=== PATIENT | female | born 1950 | race Caucasian/White ===

== ENCOUNTER → 2018-03-30 | Outpatient (CLI) | payer OTHER ==
[~2018-03-30] MED LIST: AEROCHAMBER MI1 EACH MC; LISINOPRIL10 MG PO; LISINOPRIL2.5 MG PO; NORCO 5-325 TA1 EACH PO; PERCOCET 10-321 EACH PO; PERCOCET 5-3251 EACH PO; PHENERGAN 25 MG25 M1 PO; PREDNISONE
--- NOTE | ~2018-03-30 | 2DMMODE ---
[facility] [place] [address] 2 D/M-MODE ECHOCARDIOGRAM Name: NADEEN RAINEY Room #: REG [facility]#: [id number] Admission: 03/30/18 Attend Phys: Ebenezer Barnes MD Discharge: Date of : 46 Date of Service: 03/30/18 1613 Report #: [id number] THIS REPORT FOR: //name// APPROVED REPORT Study performed: 03/30/2018 13:10:30 EXAM: Comprehensive 2D, Doppler, and color-flow Echocardiogram Patient Location: Out-Patient Status: routine BSA: 1.72 HR: 62 bpm BP: 128/78 mmHg Rhythm: NSR Other Information Study Quality: Adequate Indications Dyspnea, ABN EKG 2D Dimensions RVDd: 27.71 mm IVSd: 10.32 (7-11mm) LVOT Diam: 18.26 (18-24mm) LVDd: 43.97 mm PWd: 8.81 (7-11mm) Ascending Ao: 29.12 (22-36mm) LVDs: 28.56 (25-40mm) Aortic Root: 29.65 mm IVC: 18.00 mm Volumes Left Atrial Volume (Systole) Single Plane 4CH: 49.65 mL Aortic Valve AoV Peak Nguyễn.: 1.82 m/s AO Peak Gr.: 13.28 mmHg LVOT Max P.73 mmHg LVOT Max V: 1.39 m/s DWAINE Vmax: 2.00 cm2 Mitral Valve E/A Ratio: 1.4 MV Decel. Time: 197.31 ms MV E Max Nguyễn.: 0.64 m/s MV A Nguyễn.: 0.47 m/s [facility] [address] [place] [address] 2 D/M-MODE ECHOCARDIOGRAM Name: NADEEN RAINEY Room #: [facility]#: [id number] Admission: 03/30/18 Attend Phys: Ebenezer Barnes MD Discharge: Date of : 46 Date of Service: 03/30/18 1613 Report #: [id number] MV PHT: 57.22 ms IVRT: 93.43 ms Pulmonary Valve PV Peak Nguyễn.: 0.94 m/s PV Peak Gr.: 3.53 mmHg IL End Vmax: 0.93 m/s Pulmonary Vein P Vein S: 0.51 m/s P Vein D: 0.43 m/s P Vein S/D Ratio: 1.19 Tricuspid Valve TR Peak Nguyễn.: 2.54 m/s RAP Estimate: 5.00 mmHg TR Peak Gr.: 25.81 mmHg PA Pressure: 31.00 mmHg Left Ventricle The left ventricle is normal size. There is normal left ventricular wall thickness. The left ventricular systolic function is normal. The left ventricular ejection fraction is within the normal range. LVEF is 55-60%. Mild diastolic dysfunction is present (impaired relaxation pattern). Right Ventricle The right ventricle is normal size. The right ventricular systolic function is normal. Atria Left atrium is mildly dilated. The right atrium size is normal. Aortic Valve The aortic valve is normal in structure. Aortic valve is trileaflet. No aortic regurgitation is present. There is no aortic valvular stenosis. Mitral Valve The mitral valve is normal in structure. Mild mitral regurgitation. No evidence of mitral valve stenosis. Tricuspid Valve The tricuspid valve is normal in structure. Estimated PAP of 31 mmHg. Mild tricuspid regurgitation. Pulmonic Valve [facility] [address] [place] [address] 2 D/M-MODE ECHOCARDIOGRAM Name: NADEEN RAINEY Room #: REG [facility]#: [id number] Admission: 03/30/18 Attend Phys: Ebenezer Barnes MD Discharge: Date of : 46 Date of Service: 03/30/18 1613 Report #: [id number] The pulmonary valve is normal in structure. Mild to moderate pulmonic regurgitation. Great Vessels The aortic root is normal in size. IVC is normal in size and collapses >50% with inspiration. <Conclusion> The left ventricle is normal size. There is normal left ventricular wall thickness. The left ventricular systolic function is normal. Mild diastolic dysfunction is present (impaired relaxation pattern). The right ventricle is normal size. Left atrium is mildly dilated. The aortic valve is normal in structure. Mild mitral regurgitation. Mild tricuspid regurgitation. <ELECTRONICALLY SIGNED> By: Ebenezer Barnes MD 03/30/181612 12 12 Ebenezer Barnes MD /INF
--- NOTE | ~2018-03-30 | EXE ---
[facility] [employer] [address] STRESS ECHOCARDIOGRAM Name: NADEEN RAINEY Room #: REG [facility]#: [id number] Admission: 03/30/18 Attend Phys: Ebenezer Barnes MD Discharge: Date of : 46 Date of Service: 03/30/18 1616 Report #: [id number] THIS REPORT FOR: //name// APPROVED REPORT Study performed: 03/30/2018 14:12:16 Exam: Stress Echocardiogram Indication: Abnormal EKG Patient Location: Out-Patient Stress Nurse: Marian Flowers RN, Juliet Robles RN Status: routine Ht: 5 ft 2 in HR: 63 bpm BP: 128/78 mmHg Rhythm: NSR Medical History Medications: Listed on worksheet Cardiac Risk Factors: HTN Procedure The patient underwent an Exercise Stress Test using the Quan Protocol. Blood pressure, heart rate, and EKG were monitored. An Echocardiogram was performed by hazardous materials waste technician in four stages in quad fashion. At peak stress, four selected images were obtained and placed side by side with resting images for comparison. Stress Test Details Stress Test: Exercise stress testing was performed using a Quan protocol. HR Resting HR: 63 bpm Max Heart Rate (APMHR): 151 bpm Max HR Achieved: 130 bpm Target HR (85% APMHR): 128 bpm % of APMHR: 86 Recovery HR: 69 bpm HR response to stress: Normal HR response to stress BP Resting BP: 128/78 mmHg Max BP: 170/82 mmHg Recovery BP: 142/80 mmHg ECG Resting ECG: Sinus Rhythm [facility] [address] [place] [address] STRESS ECHOCARDIOGRAM Name: NADEEN RAINEY Room #: REG [facility]#: [id number] Admission: 03/30/18 Attend Phys: Ebenezer Barnes MD Discharge: Date of : 46 Date of Service: 03/30/18 1616 Report #: [id number] Stress ECG: Sinus Rhythm, nonspecific ST-T abnormalities ST Change: Non-ischemic Clinical Reason for Termination: Moderate/severe fatigue Stress Symptoms: short of breath, fatigue Exercise duration: 7 min 13 sec Highest Stage Achieved: Stage 3: 3.4 mph at 14% grade. Exercise capacity: 10.10 METs Pre-Stress Echo The resting Echocardiogram showed normal left ventricular contractility with an estimated Ejection Fraction of about 55-60%. Mild MR, mild TR. Post-Stress Echo The stress Echocardiogram showed normal left ventricular contractility with an estimated Ejection Fraction of about 65-70%. Normal augmentation of wall motion in all segments on post stress images. Clinical No clinical or ECG evidence for ischemia. Conclusion Clinical Response: Non-ischemic Exercise Capacity: Average Stress ECG Response: Non-ischemic Stress Echo Images: Non-ischemic The left ventricle is normal in size and wall thickness in both the rest and stress images. Other Information Study Quality: Adequate <Conclusion> The left ventricle is normal in size and wall thickness in both the rest and stress images. <ELECTRONICALLY SIGNED> By: Ebenezer Barnes MD 03/30/181615 15 15 Ebenezer Barnes MD /INF
== END ==
LOC: CV 08:43
DX: I08.1 Rheumatic disorders of both mitral and tricuspid valves (principal); R94.31 Abnormal electrocardiogram [ECG] [EKG]

== ENCOUNTER → 2019-07-08 | Outpatient (CLI) | payer OTHER | LOC: SJCVC 14:26 | DX: R94.31 Abnormal electrocardiogram [ECG] [EKG] (principal); I10 Essential (primary) hypertension; I34.0 Nonrheumatic mitral (valve) insufficiency; I49.3 Ventricular premature depolarization; R93.1 Abnormal findings on diagnostic imaging of heart and coronary circulation; E78.00 Pure hypercholesterolemia, unspecified; Z79.899 Other long term (current) drug therapy ==

== ENCOUNTER → 2020-05-11 | Outpatient (CLI) | payer OTHER | LOC: SJCVCIMAG 09:54 | PROVIDERS: ATTEND Internal Medicine Cardiovascular Disease | DX: I08.1 Rheumatic disorders of both mitral and tricuspid valves (principal); R93.1 Abnormal findings on diagnostic imaging of heart and coronary circulation; E78.5 Hyperlipidemia, unspecified; J45.909 Unspecified asthma, uncomplicated; I10 Essential (primary) hypertension; Z82.49 Family history of ischemic heart disease and other diseases of the circulatory system ==

== ENCOUNTER → 2020-11-13 | Outpatient (CLI) | payer OTHER | LOC: SJCVC 10:53 | PROVIDERS: ATTEND Internal Medicine Cardiovascular Disease | DX: R94.31 Abnormal electrocardiogram [ECG] [EKG] (principal); I25.10 Atherosclerotic heart disease of native coronary artery without angina pectoris; I10 Essential (primary) hypertension; I34.0 Nonrheumatic mitral (valve) insufficiency; R93.1 Abnormal findings on diagnostic imaging of heart and coronary circulation; E78.00 Pure hypercholesterolemia, unspecified; J45.909 Unspecified asthma, uncomplicated; Z79.899 Other long term (current) drug therapy; Z72.89 Other problems related to lifestyle; Z88.1 Allergy status to other antibiotic agents; Z88.2 Allergy status to sulfonamides ==

== ENCOUNTER → 2021-05-11 | Outpatient (CLI) | payer OTHER | LOC: SJCVC 11:21 | PROVIDERS: ATTEND Internal Medicine Cardiovascular Disease | DX: R93.1 Abnormal findings on diagnostic imaging of heart and coronary circulation (principal); I10 Essential (primary) hypertension; I34.0 Nonrheumatic mitral (valve) insufficiency; E78.00 Pure hypercholesterolemia, unspecified; E11.9 Type 2 diabetes mellitus without complications; I25.10 Atherosclerotic heart disease of native coronary artery without angina pectoris; Z82.49 Family history of ischemic heart disease and other diseases of the circulatory system; Z72.89 Other problems related to lifestyle; Z88.8 Allergy status to other drugs, medicaments and biological substances; Z79.82 Long term (current) use of aspirin; Z79.84 Long term (current) use of oral hypoglycemic drugs; Z79.899 Other long term (current) drug therapy ==